=== PATIENT | female | born 1960 | race Two or more races ===

== ENCOUNTER → 2019-05-29 | Outpatient (CLI) | payer OTHER ==
--- NOTE | 2019-05-29 15:50 | RAD ---
EXAM: AP, oblique and lateral views right knee DATE: 05/29/2019 3:34 PM INDICATION: Right knee pain COMPARISON: No Prior FINDINGS/ IMPRESSION: 1. Moderate right knee joint effusion, nonspecific. 2. No evidence of acute fracture or dislocation. 3. Joint spaces are grossly preserved, although small osteophytes are seen in the lateral compartment. Electronically signed by: Pietro Cohen MD (05/29/2019 3:47 PM) [id number]
== END ==
LOC: DXRAD 15:25
PROVIDERS: ATTEND Nurse Practitioner Adult Health
DX: M25.761 Osteophyte, right knee (principal); M25.461 Effusion, right knee
CPT/HCPCS: 73562

== ENCOUNTER → 2020-11-11 | Outpatient (CLI) | payer OTHER ==
--- NOTE | 2020-11-11 10:57 | RAD ---
INDICATION: 60 years of age asymptomatic female patient presents for screening mammography. TECHNIQUE: Full field craniocaudal and mediolateral oblique images of both breasts were obtained usi ng digital technique with tomosynthesis and also analyzed with computer-aided detection software. COMPARISON: No prior mammographic imaging is available for comparison. BREAST COMPOSITION: Category B: There are scattered fibroglandular densities. FINDINGS: Benign calcifications are present. No suspicious masses, microcalcifications or architectural distortion is present to suggest malignanc y in either breast. The visualized axillae are unremarkable. IMPRESSION: No mammographic evidence of malignancy. RECOMMENDATION: Annual screening mammography is recommended, unless clinically indicated sooner based on symptoms or change in physical exam. BIRADS 2: BENIGN This study was interpreted with the benefit of Computerized Aided Detection (CAD). Patient information is entered into the reminder system with a target due date for the next screening mammogram. Mammography is the most sensitive method for finding small breast cancers, but it does not detect the m all and is not a substitute for careful clinical examination. A negative mammogram does not negate a clinically suspicious finding and should not result in delay in biopsying a clinically suspicious a bnormality. "Our facility is accredited by the [employer] Mammography Program." Electronically signed by: Pietro Cohen MD (11/11/2020 10:55 AM) [id number]
== END ==
LOC: MAMMO 07:52
PROVIDERS: ATTEND Family Medicine
DX: Z12.31 Encounter for screening mammogram for malignant neoplasm of breast (principal)
CPT/HCPCS: 77067